=== PATIENT | male | born 1970 | race Caucasian/White ===

== ENCOUNTER 2017-02-08 12:53 | Emergency (ER) | payer SELFPAY ==
[~2017-02-08] VITALS: Ht 177.8 cm; Wt 81.2 kg
[2017-02-08 12:53] VITALS: BP 162/82
[2017-02-08] MEDS ORDERED: NORCO, ANEXSIA 5/325MG TABLET (HYDROcodone/ACETAMINOPHEN) PO ONE (13:15)
[2017-02-08] MEDS ORDERED: METHOCARBAMOL 500 MG TAB PO ONE (13:15)
[2017-02-08] MEDS ORDERED: NORCOTAB PO (14:00)
[2017-02-08] MEDS ORDERED: ROBA500T PO (14:00)
--- NOTE | 2017-02-08 14:00 | REP ---
LUMBAR SPINE, FIVE VIEWS: HISTORY: Trauma. There is no acute fracture. The L1-2 and L3-4 through L5-S1 intervertebral discs are decreased in height. Vacuum phenomenon is present at the L5-S1 level. These findings are consistent with disc degeneration. Osteophytes are present on L1, L2 , L5 and S1. The facet joints are normal in appearance. There are 2 mm of retrolisthesis of L5 on S1. IMPRESSION: Degenerative change as described above. Signed by Sharif Brady MD 02/08/2017 02:08 P
== END 2017-02-08 14:24 | disposition home or self-care (01) ==
LOC: M ED 13:25
DX: S39.012A Strain of muscle, fascia and tendon of lower back, initial encounter (principal); W17.89XA Other fall from one level to another, initial encounter; Y92.89 Other specified places as the place of occurrence of the external cause; Y93.89 Activity, other specified; Y99.8 Other external cause status

== ENCOUNTER → 2017-10-16 | Outpatient (CLI) | payer OTHER ==
[~2017-10-16] MED LIST: NORCOTAB PO; ROBA500T PO
[2017-10-16 11:39] LABS: MEAN CORPUSCULAR HEMOGLOBIN 32.8 pg (27.0-33.0); MEAN CORPUSCULAR HGB CONC 33.4 g/dl (32.0-36.5); MEAN CORPUSCULAR VOLUME 98.1 fl (80.0-96.0); PLATELET COUNT, AUTOMATED 241 10^3/uL (150-450); RED CELL DISTRIBUTION WIDTH 12.5 % (11.5-14.5); WHITE BLOOD COUNT 10.8 10^3/uL (4.0-10.0)
--- NOTE | 2017-10-16 11:59 | REP ---
Clinical: Hypertension . Comparison: 07/13/2016 . Technique: PA and lateral. Findings: The mediastinum and cardiac silhouette are normal. The lung lewis demonstrate chronic stable changes without acute consolidation, effusion, or pneumothorax. The skeletal structures are intact and normal. Impression: 1. No acute cardiopulmonary process. Signed by Jose Chi MD 10/16/2017 11:51 A
--- NOTE | 2017-10-16 12:01 | REP ---
Clinical: Bilateral knee pain Technique: AP, lateral, bilateral oblique and sunrise views right and left knee . Findings: The osseous structures and joint spaces are intact, symmetric and normal for age. There is no evidence for acute fracture or dislocation. No joint effusion is appreciated. Surrounding soft tissues are unremarkable. No subcutaneous emphysema or radiodense foreign body. No significant, overt degenerative changes are appreciated. Impression: Age appropriate bilateral knee radiograph series. Signed by Jose Chi MD 10/16/2017 11:53 A
--- NOTE | 2017-10-16 12:04 | REP ---
Clinical: Lower back pain. Technique: AP, lateral, bilateral oblique and coned-down views of the lumbosacral spine. Comparison: 02/08/2017. Findings: Moderate to advanced multilevel degenerative disc osteophyte complexes are again appreciated and essentially unchanged. Chronic compression deformity at T12 remains stable. Degenerative changes include bridging osteophytes, endplate sclerosis, disc space narrowing and hypertrophic facet changes. Findings are most pronounced at the L5-S1 level. 2 mm of retrolisthesis previously identified at the L5-L1 level is poorly evaluated on current examination due to overlying opacities. Impression: Stable moderate to advanced multilevel degenerative disc osteophyte complexes as described above. Old compression deformity at T12 remains stable. Signed by Jose Chi MD 10/16/2017 11:56 A
[2017-10-16 12:12] LABS: ALBUMIN 3.7 GM/DL (3.2-5.2); ALBUMIN/GLOBULIN RATIO 1.32 (1.00-1.93); ALKALINE PHOSPHATASE 75 U/L (45-117); ALT/SGPT 27 U/L (12-78); ANION GAP 6 MEQ/L (8-16); AST/SGOT 18 U/L (7-37); BILIRUBIN,TOTAL 0.2 MG/DL (0.2-1.0); BLOOD UREA NITROGEN 13 MG/DL (7-18); CALCIUM LEVEL 8.3 MG/DL (8.5-10.1); CARBON DIOXIDE LEVEL 27 MEQ/L (21-32); CHLORIDE LEVEL 109 MEQ/L (98-107); CHOLESTEROL LEVEL 159 MG/DL (<200); GLOMERULAR FILTRATION RATE > 60.0 (>60); GLUCOSE, FASTING 86 MG/DL (70-105); SODIUM LEVEL 142 MEQ/L (136-145); TOTAL PROTEIN 6.5 GM/DL (6.4-8.2); TRIGLYCERIDES LEVEL 54 MG/DL (<150)
--- NOTE | 2017-10-16 21:31 | ECGEPIP ---
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
== END ==
LOC: M LAB 11:06
PROVIDERS: ATTEND Family Medicine
DX: I10 Essential (primary) hypertension (principal); J44.9 Chronic obstructive pulmonary disease, unspecified; M54.30 Sciatica, unspecified side; M19.90 Unspecified osteoarthritis, unspecified site

== ENCOUNTER → 2020-01-12 | Outpatient (CLI) | payer OTHER ==
[~2020-01-12] MED LIST changes: +HYDR-3715 PO; -NORCOTAB PO
--- NOTE | 2020-01-12 13:04 | REP ---
Clinical: Hip pain. Technique: Frontal view of the pelvis with neutral and frog lateral views of the left hip. Findings: Osseous structures, joint spaces and surrounding soft tissues appear relatively age-appropriate and essentially symmetric. No significant osteoarthritic change. No fracture or dislocation. Impression: Age-appropriate pelvis and left hip radiographs. Electronically Signed by Jose Chi MD 01/12/2020 12:56 P
--- NOTE | 2020-01-12 13:07 | REP ---
Clinical: Pain. Technique: AP, lateral, bilateral oblique and coned-down views of the lumbosacral spine. Findings: Lateral view suggests chronic compression deformity at T12 the with approximately 35% loss of anterior superior vertebral body height and ridging osteophytes. Introducer findings are essentially stable compared with 10/16/2017. The alignment and lordosis maintained. Moderate/early advanced multilevel degenerative disc osteophyte complexes are appreciated primarily involving T12-L1, L1-2, and L5-L1 including osteophytosis, endplate sclerosis, and minimal disc space narrowing. Findings appear relatively stable compared to 2017. No acute fracture / compression injury or subluxation. No obvious spondylolysis or spondylolisthesis. Bilateral sacroiliac joints appear symmetric and within normal. Impression: 1. Chronic stable changes. Electronically Signed by Jose Chi MD 01/12/2020 12:58 P
== END ==
LOC: M RAD 12:16
PROVIDERS: ATTEND Family Medicine
DX: M54.30 Sciatica, unspecified side (principal); M25.552 Pain in left hip; M81.0 Age-related osteoporosis without current pathological fracture; M51.36 Other intervertebral disc degeneration, lumbar region

== ENCOUNTER → 2020-11-08 | Outpatient (CLI) | payer OTHER ==
[2020-11-08 16:50] LABS: BARBITURATES URINE REFLEX NEGATIVE (NEGATIVE); BENZODIAZEPINES URINE REFLEX NEGATIVE (NEGATIVE); COCAINE METABOLITE URINE REFLE NEGATIVE (NEGATIVE); METHADONE URINE REFLEX NEGATIVE (NEGATIVE); PHENCYCLIDINE URINE REFLEX NEGATIVE (NEGATIVE)
[2020-11-08 16:51] LABS: AMPHETAMINES URINE REFLEX PENDING CONFIRMATION (NEGATIVE); CANNABINOIDS URINE REFLEX PENDING CONFIRMATION (NEGATIVE); OPIATES URINE REFLEX PENDING CONFIRMATION (NEGATIVE)
[2020-11-11 13:08] LABS: Amphetamine Positive (.); Amphetamines Positive (.); Cannabinoid Positive (.); GC Amphetamine >5000 ng/mL (Cutoff=500); GC Carboxy THC 34 ng/mL (Cutoff=10); GC Methamphetam >5000 ng/mL (Cutoff=500); Methamphetamine Positive (.); Opiates Negative (Cutoff=200)
== END ==
LOC: M LAB 15:56
PROVIDERS: ATTEND Family Medicine
DX: Z51.81 Encounter for therapeutic drug level monitoring (principal)
CPT/HCPCS: 80307; G0480

== ENCOUNTER → 2022-01-12 | Outpatient (CLI) | payer OTHER | LOC: M LABSMTC 10:05 | PROVIDERS: ATTEND Family Medicine | DX: Z11.52 Encounter for screening for COVID-19 (principal) | CPT/HCPCS: C9803; U0003 ==

== ENCOUNTER 2022-05-17 12:16 | Emergency (ER) | payer OTHER ==
[~2022-05-17] VITALS: Ht 175.3 cm; Wt 75.0 kg
[2022-05-17 12:16] VITALS: BP 142/67
[2022-05-17] MEDS ORDERED: BUPR8SUB (12:38)
[2022-05-17] MEDS ORDERED: PREG150C (12:38)
[2022-05-17] MEDS ORDERED: MELO15TA28 (12:38)
[2022-05-17] MEDS ORDERED: METH-1164 PO (13:44)
[2022-05-17] MEDS ORDERED: MEDR4PAK PO (13:44)
== END 2022-05-17 14:02 | disposition home or self-care (01) ==
LOC: M ED 12:16
DX: M51.37 Other intervertebral disc degeneration, lumbosacral region (principal); M54.32 Sciatica, left side

== ENCOUNTER 2022-05-31 15:21 | Outpatient (RCR) | payer OTHER ==
[~2022-05-31 15:21] MED LIST changes: +BUPR8SUB; +MEDR4PAK PO; +MELO15TA28; +METH-1164 PO; +PREG150C
== END 2022-06-21 ==
LOC: M PT 15:21
PROVIDERS: ATTEND Pediatrics
DX: M51.9 Unspecified thoracic, thoracolumbar and lumbosacral intervertebral disc disorder (principal)

== ENCOUNTER → 2022-06-02 | Outpatient (CLI) | payer OTHER | LOC: M PLAIMG 10:49 | PROVIDERS: ATTEND Pediatrics | DX: M51.27 Other intervertebral disc displacement, lumbosacral region (principal); M51.37 Other intervertebral disc degeneration, lumbosacral region; M51.36 Other intervertebral disc degeneration, lumbar region ==

== ENCOUNTER → 2022-11-14 | Outpatient (CLI) | payer OTHER | LOC: M WUC 13:20 | PROVIDERS: ATTEND Pediatrics | DX: M25.512 Pain in left shoulder (principal) ==

== ENCOUNTER → 2023-10-10 | Outpatient (REF) | payer OTHER ==
[~2023-10-10] MED LIST changes: -PREG150C; +PREG150C2
== END ==
LOC: M LAB REF 16:20
PROVIDERS: ATTEND Physician Assistant
DX: B34.9 Viral infection, unspecified (principal)

== ENCOUNTER 2023-12-25 14:18 | Emergency (ER) | payer OTHER, SELFPAY ==
[~2023-12-25] VITALS: Ht 175.3 cm; Wt 84.5 kg
[2023-12-25 14:20] VITALS: BP 116/69; TEMP 98; O2SAT 96
[2023-12-25] MEDS ORDERED: FLUTISP (14:41)
[2023-12-25] MEDS ORDERED: BUPR300T92 (14:41)
== END 2023-12-25 17:53 | disposition left against medical advice (07) ==
LOC: M ED 14:18
DX: Z53.21 Procedure and treatment not carried out due to patient leaving prior to being seen by health care provider (principal)

== ENCOUNTER 2024-02-09 11:07 | Emergency (ER) | payer OTHER, SELFPAY ==
[~2024-02-09] VITALS: Ht 170.2 cm; Wt 85.9 kg
[~2024-02-09 11:07] MED LIST changes: +BUPR300T92; +FLUTISP
[2024-02-09 11:08] VITALS: BP 152/86; TEMP 97.1; O2SAT 97
[2024-02-09] MEDS ORDERED: SUBO8MIS SL (11:15)
[2024-02-09] MEDS: LIDOCAINE W/EPINEPHRINE 1% 20ML VIAL SC ONE (11:30)
[2024-02-09] MEDS: DOXYCYCLINE HYCLATE 100MG TABLET PO ONE (11:50)
[2024-02-09] MEDS ORDERED: DOXY-443 PO (11:50)
== END 2024-02-09 12:09 | disposition home or self-care (01) ==
LOC: M ED 11:07
DX: L02.412 Cutaneous abscess of left axilla (principal); Z79.2 Long term (current) use of antibiotics; Z79.899 Other long term (current) drug therapy

== ENCOUNTER → 2024-06-16 | Outpatient (REF) | payer OTHER ==
[~2024-06-16] MED LIST changes: +BUPR-597; -BUPR300T92; +DOXY-323 PO; +LIDO5DIS41 TD; +SUBO8MIS SL
[2024-06-17 13:26] LABS: PSA SCREENING 0.17 NG/ML (< 4.00)
[2024-06-17 13:30] LABS: THYROID STIMULATING HORMONE 0.791 uIU/ML (0.55-4.78); TOTAL 25(OH) VITAMIN D 35.4 NG/ML (20.0-100.0)
[2024-06-17 13:35] LABS: ALBUMIN 4.2 G/DL (3.2-5.2); ALKALINE PHOSPHATASE 71 U/L (46-116); ALT/SGPT 29 U/L (7.0-40); AST/SGOT 17 U/L (<34); BILIRUBIN,TOTAL 0.4 MG/DL (0.3-1.2); BLOOD UREA NITROGEN 13 MG/DL (9-23); CALCIUM LEVEL 9.5 MG/DL (8.5-10.1); CARBON DIOXIDE LEVEL 28 MMOL/L (20-31); CHLORIDE LEVEL 105 MMOL/L (98-107); CREATININE FOR GFR 0.76 MG/DL (0.70-1.30); GLOMERULAR FILTRATION RATE > 60.0 (>56); GLUCOSE, FASTING 77 MG/DL (60-100); POTASSIUM SERUM 5.1 MMOL/L (3.5-5.1); SODIUM LEVEL 139 MMOL/L (136-145); TOTAL PROTEIN 6.9 G/DL (5.7-8.2)
== END ==
LOC: M LAB REF 11:53
PROVIDERS: ATTEND Pediatrics
DX: K21.00 Gastro-esophageal reflux disease with esophagitis, without bleeding (principal); Z12.11 Encounter for screening for malignant neoplasm of colon; E55.9 Vitamin D deficiency, unspecified; Z12.5 Encounter for screening for malignant neoplasm of prostate

== ENCOUNTER 2024-07-07 11:15 | Emergency (ER) | payer OTHER ==
[~2024-07-07] VITALS: Ht 172.7 cm; Wt 79.8 kg
[2024-07-07 11:16] VITALS: BP 146/86; TEMP 97.6; O2SAT 94
[2024-07-07] MEDS ORDERED: OMEP-173 (12:13)
[2024-07-07] MEDS ORDERED: VITA200032 (12:13)
[2024-07-07] MEDS ORDERED: AZEL1SPR3 (12:13)
[2024-07-07] MEDS: LIDOCAINE 5% (LIDODERM) PATCH TD ONE (13:36)
[2024-07-07] MEDS: ACETAMINOPHEN 500 MG TAB PO ONE (13:36)
[2024-07-07] MEDS: KETOROLAC 30 MG/ML 1ML VIAL IM ONE (14:27)
[2024-07-07] MEDS ORDERED: MELO7.5T35 PO (14:40)
== END 2024-07-07 15:00 | disposition home or self-care (01) ==
LOC: M ED 11:15
DX: M25.512 Pain in left shoulder (principal); K21.9 Gastro-esophageal reflux disease without esophagitis; F12.10 Cannabis abuse, uncomplicated; Z79.83 Long term (current) use of bisphosphonates; Z79.899 Other long term (current) drug therapy
CPT/HCPCS: 96372; 99282; J1885